=== PATIENT | male | born 1980 | race Caucasian/White ===

== ENCOUNTER 2019-01-23 10:24 | Emergency (ER) | payer OTHER ==
[2019-01-23] MEDS: ACETAMINOPHEN 500 MG TAB PO (11:31)
[2019-01-23] MEDS: KETOROLAC 60 MG INJ IM (11:32)
[2019-01-23] MEDS: ONDANSETRON (ODT) 4 MG TAB ODT (11:32)
== END 2019-01-23 13:36 | disposition home or self-care (01) ==
LOC: FTE 10:24
DX: R50.9 Fever, unspecified (principal); R05 Cough; R53.83 Other fatigue
CPT/HCPCS: 87400; 96372; 99284-25